=== PATIENT | female | born 1985 | race African-American/Black ===

== ENCOUNTER → 2020-02-02 | Emergency (ER) | payer MEDICAID ==
[~2020-02-02] VITALS: Ht 165.1 cm; Wt 108.9 kg
[~2020-02-02] MED LIST: POTASSIUM CHL 20 Meq TABLET PO ONE
[2020-02-02 01:34] LABS: Urine WBC None Seen /hpf (0 - 5)
[2020-02-02 01:53] LABS: BUN/Creatinine Ratio 16.5; Calcium 9.5 mg/dL (8.5-10.1)
[2020-02-02 01:56] LABS: Bilirubin, Total 0.2 mg/dL (0.2-1.0); Potassium 2.9 mmol/L (3.5-5.1); Total Protein 8.1 g/dL (6.4-8.2)
[2020-02-02 02:05] LABS: Urine Bacteria NONE SEEN /hpf (None Seen); Urine Blood Negative /uL (Negative); Urine Specific Gravity 1.009 (1.001-1.035)
[2020-02-02 02:07] LABS: Basophils # (auto) 0 10 ^3/uL (0-0.2); Basophils % (auto) 0.5 % (0.0-2.0); Eosinophils # (auto) 0.1 10 ^3/uL (0-0.8); Eosinophils % (auto) 1.2 % (0.0-7.0); Hematocrit 37.1 % (36.0-46.0); Hemoglobin 12.3 g/dL (12.2-16.2); Lymphocytes # (auto) 3.7 10 ^3/uL (0.4-5.4); Lymphocytes % (auto) 44.7 % (10.0-50.0); Mean Corpuscular Hemoglobin 27.8 pg (28.0-32.0); Mean Corpuscular Hgb Conc. 33.1 g/dL (32.0-36.0); Monocytes # (auto) 0.5 10 ^3/uL (0-1.3); Monocytes % (auto) 5.9 % (0.0-12.0); Neutrophils % (auto) 47.7 % (37.0-80.0); Nucleated Red Blood Cells % 0.2 %; Platelet Count (auto) 325 10^3/uL (140-450); Red Blood Cells 4.42 10^6/uL (4.0-5.20); Red Cell Distribution Width 14.3 % (11.8-14.3); White Blood Cell 8.4 10^3/uL (4.4-10.8)
[2020-02-02 03:01] VITALS: BP 130/91
== END | disposition home or self-care (01) ==
LOC: ER 00:15
DX: N93.8 Other specified abnormal uterine and vaginal bleeding (principal); R10.2 Pelvic and perineal pain; Z88.1 Allergy status to other antibiotic agents
CPT/HCPCS: 36415; 80053; 81001; 84702; 85025